=== PATIENT | female | born 1990 | race Caucasian/White ===

== ENCOUNTER 2016-06-21 10:07 | Inpatient (IN) | payer BC ==
[2016-06-20 14:57] VITALS: BMI 27.2
[2016-06-21] MEDS ORDERED: CITRIC ACID-SODIUM CITRATE 15 ML CUP PO ONE (10:20)
[2016-06-21] MEDS ORDERED: LACTATED RINGERS 1,000 ML IV ONE (10:20)
[2016-06-21] MEDS ORDERED: ceFAZolin 2 GM in SODIUM CHLORIDE 0.9% 100 ML IVPB ONE (11:01)
[2016-06-21 11:15] LABS: Basophils % (A) 0 %; CH 29.4; CHCM 33.1; Eosinophils # (A) 0.1 k/uL (0-0.7); Eosinophils % (A) 1 %; HDW 3.15; HGB 10.6 gm/dL (11.4-16.0); Luc # (Auto) 0.19; Luc % (Auto) 2; Lymphocytes # (A) 2.2 k/uL (1.0-4.8); Lymphocytes % (A) 21 %; MCH 30.7 pg (25.0-35.0); MCHC 34.3 g/dL (31.0-37.0); MCV 89.4 fL (80.0-100.0); Monocytes # (A) 0.7 k/uL (0-1.0); Monocytes % (A) 7 %; Neutrophils # (A) 7.1 k/uL (1.3-7.7); Neutrophils % (A) 69 %; RBC 3.47 m/uL (3.80-5.40); RDW 13.7 % (11.5-15.5); WBC 10.3 k/uL (3.8-10.6); WBC (Perox) 10.54
[2016-06-21] MEDS ORDERED: ONDANSETRON 4 MG/2 ML VIAL ONE (12:04)
[2016-06-21] MEDS ORDERED: OXYTOCIN 10 UNIT/ML 1 ML VIAL ONE (12:04)
[2016-06-21] MEDS ORDERED: MORPHINE SULFATE (PF) 0.3 MG/0.3 ML SYR ONE (12:04)
[2016-06-21] MEDS ORDERED: KETOROLAC 30 MG/ML 1 ML VIAL ONE (12:04)
[2016-06-21] MEDS ORDERED: NALBUPHINE 10 MG/ML AMPUL ONE (12:04)
[2016-06-21] MEDS ORDERED: ONDANSETRON 4 MG/2 ML VIAL IVP PRN (12:49)
[2016-06-21] MEDS ORDERED: SIMETHICONE 80 MG CHEWABLE PO PRN (12:49)
[2016-06-21] MEDS ORDERED: diphenhydrAMINE 25 MG CAP PO PRN (12:49)
[2016-06-21] MEDS ORDERED: ACETAMINOPHEN TAB 325 MG TAB PO PRN (12:49)
[2016-06-21] MEDS ORDERED: METOCLOPRAMIDE 5 MG/ML 2 ML VIAL IVP PRN (12:49)
[2016-06-21] MEDS ORDERED: ZOLPIDEM 5 MG TAB PO PRN (12:49)
[2016-06-21] MEDS ORDERED: diphenhydrAMINE 50 MG/ML 1 ML VIAL IVP PRN ×3 (12:49→13:54)
[2016-06-21] MEDS ORDERED: LANOLIN CREAM 5 GM TUBE TOPICAL PRN (12:49)
[2016-06-21] MEDS ORDERED: diphenhydrAMINE 50 MG CAP PO PRN (12:49)
[2016-06-21] MEDS ORDERED: NALOXONE 0.4 MG/ML 1 ML VIAL IV PRN ×2 (12:49→13:54)
[2016-06-21] MEDS ORDERED: Acetaminophen-Codeine 300-30mg TAB PO PRN ×2 (12:49)
--- NOTE | 2016-06-21 12:56 | P.HPOB ---
History of Present Illness H&P Date: 06/21/16 Chief Complaint: 39+ weeks, previous section, undesired fertility The patient is a 25-year-old 4 para 10-1 admitted at 39-4/7 weeks by good dating parameters. She is admitted for repeat low transverse section with intraoperative bilateral tubal occlusion using Filshie clips. The risks and complications of the procedure were discussed and she was offered vaginal trial of labor which she declined. She has signed consent for the procedures as outlined above. Her was otherwise uncomplicated and group B strep status was negative. Obstetrical history 4 para 10-1 with 1 previous delivery secondary to breech presentation with IUGR at 37 weeks of gestation. She had 2 previous early miscarriages not requiring D&C. Current statistics are listed in history of present illness. EDC of 06/25/2016 was established by last menstrual period and confirmed by a 20 week ultrasound. Laboratory workup demonstrates a blood type of A+ with a negative antibody screen. Rubella status is immune. All other laboratory workup was within normal limits. One hour Glucola was normal and group B strep status is negative. Gynecologic history is unremarkable with no history of any infections to include STDs. Review of Systems Review of systems is confined to history of present illness. Past Medical History Past Medical History: No Reported History Additional Past Medical History / Comment(s): BLEEDING POST MISSED AB & HORMONES STILL ELEVATED. History of Any Multi-Drug Resistant Organisms: None Reported Past Surgical History: Section Additional Past Surgical History / Comment(s): V/P SHUNT A BABY, REMOVED AT AGE 6 YR. Past Anesthesia/Blood Transfusion Reactions: No Reported Reaction Past Psychological History: No Psychological Hx Reported Smoking Status: Never smoker Past Alcohol Use History: None Reported Past Drug Use History: None Reported - Past Family History Mother Family Medical History: No Reported History Sister(s) Additional Family Medical History / Comment(s): Spina bifida Medications and Allergies Home Medications Medication Instructions Recorded Confirmed Type Pnv with Ca,No.72/Iron/FA 1 each PO DAILY 06/20/16 06/20/16 History [ Plus Tablet] Allergies Allergy/AdvReac Type Severity Reaction Status Date / Time No Known Allergies Allergy Verified 06/20/16 14:49 Exam In general, this is a well-developed, well-nourished white female in no acute distress. Her heart has a regular rhythm and rate without murmur. Her lungs are clear to auscultation bilaterally in all hendrix. Her abdomen is gravid, nondistended, has normal active bowel sounds, is soft, nontender, and without any palpable masses aside from uterine fundus. Her extremities are without any cyanosis, clubbing, or edema and are nontender to palpation bilaterally. Digital cervical examination is deferred. Results Result Diagrams: 06/21/16 10:50 Abnormal Lab Results - Last 24 Hours (Table) 06/21/16 Range/Units 10:50 RBC 3.47 L (3.80-5.40) m/uL Hgb 10.6 L (11.4-16.0) gm/dL Hct 31.0 L (34.0-46.0) % Assessment and Plan (1) Family planning Status: Acute (2) Previous section Status: Acute Plan: The patient is admitted for repeat low transverse section with intraoperative bilateral tubal occlusion using Filshie clips. The risks and complications were discussed at length. She has expressed her understanding and agreed to proceed. Consent was documented in the office as regards tubal ligation and reaffirmed both prior to surgery and intraoperatively.
[2016-06-21] MEDS ORDERED: OXYTOCIN 30 UNITS/500 ML NS 30 UNIT in SALINE 1 500ML.BAG IV SCH (13:00)
--- NOTE | 2016-06-21 13:03 | P.OP ---
Date of Procedure: 06/21/16 Preoperative Diagnosis: #1. Previous section, declining #2. Undesired fertility Postoperative Diagnosis: Same Procedure(s) Performed: #1. Repeat low transverse section #2. Intraoperative bilateral tubal occlusion with Filshie clips Anesthesia: spinal Surgeon: Jeffrey Samaniego Rabbit Fancier #1: Jazmin Salguero Estimated Blood Loss (ml): 400 IV fluids (ml): 700 Urine output (ml): 400 Pathology: other (Placenta) Condition: stable Disposition: floor Operative Findings: The patient was taken to the operating room where she was delivered of a viable 6 lbs. 9 oz. baby girl with Apgars of 9 at 1 minute and 9 at 5 minutes delivered in the right occiput transverse position. There was a loose nuchal cord 1 reduced after delivery of the head. The placenta was delivered manually , intact, and grossly normal with a grossly normal three-vessel cord. There was minimal intraoperative abdominal scarring. The uterus, tubes, and ovaries were entirely normal to inspection. Each fallopian tube was occluded bilaterally with a Filshie clip approximately 2-3 cm from the cornu. Description of Procedure: The patient was prepped and draped in usual fashion after spinal anesthesia was administered by the anesthesiologist. A Pfannenstiel incision was made through pre-existing scar and extended into the abdominal cavity without difficulty. The bladder peritoneum was minimally scarred but was reflected distally. A 1-2 cm incision was made in the transverse plane of the lower uterine segment to enter the uterus at which time clear fluid was noted. The incision was extended in both directions using the bandage scissors. The head was delivered up and through the incision where the nose and mouth were thoroughly suctioned. The nuchal cord was noted and was reduced. The remainder of the infant was delivered onto the field where the cord was doubly clamped, cut, and the passed for resuscitative measures with weight and Apgars as noted above. A segment of cord was doubly clamped, cut, and set aside should cord gases become necessary. The placenta was delivered manually, intact, and grossly normal with a grossly normal three-vessel cord as noted above. The uterus was exteriorized and the interior cavity of the uterus swept of any remaining placental or membranous fragments. The margins of the incision were grasped with Hurtado clamps and the incision closed in a single running locking stitch of 0 chromic catgut from margin to margin. Any small points of bleeding were made hemostatic with the Bovie. Attention was then turned to the fallopian tubes after reconfirming with the patient her desire for tubal ligation. A Filshie clip was placed across the entire thickness of the isthmic portion of the tube on each side and firmly affixed. Each was placed approximately 2-3 cm from the cornu of the uterus. The posterior cul-de-sac was suctioned using a guard. The uterus was replaced within the abdominal cavity and the gutters were swept of any remaining blood, fluid, or clot. The incision was reexamined and found to be hemostatic. The parietal peritoneum was loosely reapproximated and layer of muscles examined and made hemostatic with the Bovie. The fascia was closed with 2 running stitches of 0 Vicryl proceeding from the lateral margins to the midpoint. Examination the fascial closure demonstrated some tearing of the lower aspect of the left side of the fascia which was reinforced with a running stitch of 0 Vicryl incorporating larger portion of the lower incision. The subcutaneous tissues were irrigated, made hemostatic with the Bovie, and reapproximated with a running stitch of 30 plain catgut. The skin was reapproximated with a running subcuticular stitch of 4-0 Vicryl from margin to margin followed by half-inch Steri-Strips placed with Mastisol. Estimated blood loss for the entire case was 400 mL or less. There were no complications. All sponge, instrument, and needle counts were correct. The patient tolerated the procedure well and proceeded to the recovery room in stable condition. Both mother and are resting comfortably in recovery.
[2016-06-21] MEDS ORDERED: MORPHINE SULFATE 4 MG/ML SYRINGE IVP PRN (13:54)
[2016-06-21] MEDS: LACTATED RINGERS 1,000 ML IV SCH ×2 (14:41→22:15)
[2016-06-22] MEDS: LACTATED RINGERS 1,000 ML IV SCH ×4 (00:35→22:36)
[2016-06-22] MEDS: SENNOSIDES-DOCUSATE SODIUM 1 EACH TAB PO SCH ×3 (00:36→21:25)
[2016-06-22] MEDS: KETOROLAC 30 MG/ML 1 ML VIAL IVP PRN ×2 (04:54→10:16)
[2016-06-22 06:51] LABS: Basophils % (A) 0 %; CH 29.7; CHCM 32.9; Eosinophils # (A) 0.1 k/uL (0-0.7); Eosinophils % (A) 1 %; HCT 29.8 % (34.0-46.0); HDW 2.97; HGB 9.8 gm/dL (11.4-16.0); Luc % (Auto) 2; Lymphocytes # (A) 1.8 k/uL (1.0-4.8); Lymphocytes % (A) 16 %; MCH 29.6 pg (25.0-35.0); MCHC 32.7 g/dL (31.0-37.0); MCV 90.6 fL (80.0-100.0); Mean Platelet Volume 7.4; Monocytes # (A) 0.8 k/uL (0-1.0); Monocytes % (A) 7 %; Neutrophils # (A) 8.4 k/uL (1.3-7.7); Neutrophils % (A) 74 %; RBC 3.29 m/uL (3.80-5.40); RDW 13.6 % (11.5-15.5); WBC 11.3 k/uL (3.8-10.6); WBC (Perox) 11.22
--- NOTE | 2016-06-22 08:30 | P.PNOBGPC ---
Subjective - Subjective Patient reports: Reports appetite normal, Reports voiding normally, Reports pain well controlled, Reports ambulating normally : doing well Objective - Vital Signs Latest vital signs: Vital Signs Temp Pulse Resp BP Pulse Ox 06/22/16 08:00 98.2 F 88 18 95/63 06/22/16 04:00 97.1 F L 89 16 111/68 06/22/16 00:00 98.9 F 81 16 118/77 99 06/21/16 20:00 97.0 F L 80 16 119/92 99 06/21/16 18:00 18 06/21/16 16:54 98.5 F 75 16 113/67 99 06/21/16 14:54 99 06/21/16 14:50 98.6 F 68 18 117/71 06/21/16 14:20 72 16 126/61 06/21/16 13:50 98.4 F 73 16 98/54 06/21/16 13:35 77 16 101/66 06/21/16 13:20 98.6 F 77 16 101/66 06/21/16 13:05 84 16 111/67 99 06/21/16 12:50 98.4 F 91 18 107/68 99 06/21/16 10:08 98.4 F 90 18 108/80 99 Intake and Output 06/21/16 06/22/16 06/22/16 22:59 06:59 14:59 Intake Total 2200 400 Output Total 1700 1050 Balance 500 -1050 400 Intake: Intake, IV Titration 2100 Amount Lactated Ringers 1,000 ml 1000 @ 125 mls/hr IV .Q8H MAGDI Rx#:[id number] Lactated Ringers 1,000 ml 1000 @ 4000 mls/hr IV .Q15M ONE Rx#:[id number] ceFAZolin 2 gm In Sodium 100 Chloride 0.9% 100 ml @ 100 mls/hr IVPB ONCE ONE Rx#:[id number] Oral 100 400 Output: Urine 1700 1050 Uretheral (Bardales) 300 Other: # Voids 2 1 - Exam Lungs: bilateral: normal Chest: Normal S1, Normal S2 Extremities: Present: normal Abdomen: Present: normal appearance, soft. Absent: distention, tenderness Incision: Present: normal, dry, intact Uterus: Present: normal, firm (The uterine fundus as tonic and nontender at the umbilicus.) - Labs Labs: Abnormal Lab Results - Last 24 Hours (Table) 06/21/16 06/22/16 Range/Units 10:50 06:29 WBC 11.3 H (3.8-10.6) k/uL RBC 3.47 L 3.29 L (3.80-5.40) m/uL Hgb 10.6 L 9.8 L (11.4-16.0) gm/dL Hct 31.0 L 29.8 L (34.0-46.0) % Neutrophils # 8.4 H (1.3-7.7) k/uL Assessment and Plan (1) Family planning Current Visit: Yes Status: Acute Code(s): Z30.09 - ENCOUNTER FOR OT GENERAL CNSL AND ADVICE ON CONTRACEPTION SNOMED Code(s): 05880101 (2) Previous section Current Visit: Yes Status: Acute Code(s): Z98.891 - HISTORY OF UTERINE SCAR FROM PREVIOUS SURGERY SNOMED Code(s): 964014295 (3) delivery delivered Narrative/Plan: Continue routine postoperative care. I have strongly encouraged the patient ambulate in the halls at least 4 times daily or more. Her diet has been advanced to regular. Assuming no complications, the patient is likely to be discharged home tomorrow. Current Visit: Yes Status: Acute Code(s): O82 - ENCOUNTER FOR DELIVERY WITHOUT INDICATION SNOMED Code(s): 794208117
--- NOTE | 2016-06-22 08:42 | P.PN ---
Progress Note - Text Date: 06/22/2016 Time: 707 The patient is status post section Vital signs stable VAS: 0-10 Patient has no complaints of pain. The patient incurred some minimal itching yesterday, this itching is now subsiding. Pain meds to be managed by service.
[2016-06-22] MEDS: IBUPROFEN 600 MG TAB PO PRN (21:25)
[2016-06-22 22:39] VITALS: TEMP 98
[2016-06-23] MEDS: SENNOSIDES-DOCUSATE SODIUM 1 EACH TAB PO SCH (08:19)
[2016-06-23] MEDS: IBUPROFEN 600 MG TAB PO PRN (08:19)
[2016-06-23 10:28] VITALS: RESP 20
[2016-06-23 10:29] VITALS: BP 101/64; PULSE 90
--- NOTE | 2016-06-23 11:35 | P.DS ---
Providers Date of admission: 06/21/16 10:07 Expected date of discharge: 06/23/16 Attending physician: Jeffrey Samaniego Primary care physician: Jere Cottrell - Discharge Diagnosis(es) (1) Family planning Current Visit: Yes Status: Acute (2) Previous section Current Visit: Yes Status: Acute (3) delivery delivered Current Visit: Yes Status: Acute Hospital Course: The patient is a 25-year-old 4 para 1021 admitted at 39-4/7 weeks by good dating parameters. She has a history of a previous section and was requesting repeat with intraoperative tubal ligation. Consents were documented in the office. She was taken to the operating room where she underwent repeat low transverse section with bilateral tubal occlusion using Filshie clips. The procedure was uncomplicated in nature. Her postoperative course was additionally uncomplicated with the vital signs being stable and her temperature was afebrile throughout. She was deemed stable for discharge by postoperative day #2 and was discharged home to follow-up in the office in 2 weeks for an incision check and 6 weeks routinely. Discharge instructions included calling for any significantly increased bleeding or foul- smelling lochia, significantly increased fever or abdominal pain, perineal complaints, breast complaints, incisional complaints, or anything else that concerned her. She was additionally instructed to have nothing in the vagina for at least 6 weeks time to include intercourse. She understood all of her instructions and agrees to follow up as noted above. Discharge medications included continued vitamins as she has opted to breast-feed. She was additionally provided with a prescription for Tylenol 3, 1-2 by mouth every 6 hours when necessary pain, #30 dispensed with no refills. She was to alternate this with [id number] analgesics as needed. Maternal blood type is A+ and rubella status is immune. Discharge hemoglobin and hematocrit were 9.8 and 29.8 respectively. As result, she was asked use iron sulfate daily for approximately 1 month. Procedures: #1. Repeat low transverse section #2. Intraoperative bilateral tubal occlusion using Filshie clips Patient Condition at Discharge: Good Plan - Discharge Summary New Discharge Prescriptions: Acetaminophen-Codeine 300-30mg [Tylenol #3] 2 tab PO Q6H PRN #30 tablet PRN Reason: Pain Discharge Medication List Pnv with Ca,No.72/Iron/FA [ Plus Tablet] 1 each PO DAILY 06/20/16 [ History] Acetaminophen-Codeine 300-30mg [Tylenol #3] 2 tab PO Q6H PRN #30 tablet [Rx] Follow up Appointment(s)/Referral(s): Jeffrey Samaniego MD [STAFF PHYSICIAN] - 2 Weeks Discharge Disposition: HOME SELF-CARE
== END 2016-06-23 13:00 | disposition home or self-care (01) | DRG 766 ==
LOC: 4FBP 10:07
PROVIDERS: ADMIT Obstetrics & Gynecology; ATTEND Obstetrics & Gynecology
PROC: 10D00Z1 Extraction of Products of Conception, Low, Open Approach (ICD-10-PCS; principal; 2016-06-21 12:00)
PROC: 0UB70ZZ Excision of Bilateral Fallopian Tubes, Open Approach (ICD-10-PCS; principal; 2016-06-21 12:00)
DX: O34.211 Maternal care for low transverse scar from previous cesarean delivery (principal); O69.81X0 Labor and delivery complicated by cord around neck, without compression, not applicable or unspecified; Z37.0 Single live birth; Z3A.39 39 weeks gestation of pregnancy; Z30.2 Encounter for sterilization
CPT/HCPCS: 85025; 86850; 86900; 86901; 88307

== ENCOUNTER 2016-08-24 16:49 | Observation (INO) | payer BC ==
[2016-08-24] MEDS ORDERED: SODIUM CHLORIDE 0.9% 1,000 ML IV ONE (19:04)
[2016-08-24] MEDS ORDERED: ONDANSETRON 4 MG/2 ML VIAL IVP STA (19:04)
[2016-08-24] MEDS ORDERED: KETOROLAC 30 MG/ML 1 ML VIAL IVP STA (19:04)
--- NOTE | 2016-08-24 19:07 | ED ---
Abdominal Pain HPI <Carlitos Johnson - Last Filed: 08/24/16 20:48> - General Source: patient, RN notes reviewed Mode of arrival: wheelchair Limitations: no limitations <Tayla Olson - Last Filed: 08/25/16 02:46> - General Chief Complaint: Abdominal Pain Stated Complaint: Vomiting, Abd Pain, back pain Time Seen by Provider: 08/24/16 18:29 - History of Present Illness Initial Comments: Patient is a 25-year-old female presents to the emergency room for an evaluation of abdominal pain. Patient states the pain began around noon today. Patient states she began having right lower quadrant pain. Patient states she 's having nausea and vomiting. Patient states she is having 7 out of 10 pain. Patient states the pain is constant. Patient states she has a history of section and tubal ligation in May. Patient denies fevers or chills. Patient states the pain is not any worse with movement. Patient states she has history kidney stone about 10 years ago. Patient is not sure if this feels similar to kidney stone. Patient states the pain radiates to her back. Patient denies pain or burning during urination, trouble urinating or blood in urine. Patient denies chest pain or shortness of breath. Patient denies headache or dizziness. (Tayla Olson) - Related Data Home Medications Medication Instructions Recorded Confirmed No Known Home Medications [No 08/24/16 08/24/16 Known Home Medications] Allergies Allergy/AdvReac Type Severity Reaction Status Date / Time No Known Allergies Allergy Verified 08/24/16 16:54 Review of Systems ROS Other: All systems not noted in ROS Statement are negative. <Carlitos Johnson - Last Filed: 08/24/16 20:48> ROS Other: All systems not noted in ROS Statement are negative. <Tayla Olson - Last Filed: 08/25/16 02:46> ROS Statement: Those systems with pertinent positive or pertinent negative responses have been documented in the HPI. Past Medical History Past Medical History: No Reported History Additional Past Medical History / Comment(s): BLEEDING POST MISSED AB & HORMONES STILL ELEVATED. History of Any Multi-Drug Resistant Organisms: None Reported Past Surgical History: Section, Tubal Ligation Additional Past Surgical History / Comment(s): V/P SHUNT A BABY, REMOVED AT AGE 6 YR. Past Anesthesia/Blood Transfusion Reactions: No Reported Reaction Past Psychological History: No Psychological Hx Reported Smoking Status: Never smoker Past Alcohol Use History: None Reported Past Drug Use History: None Reported - Past Family History Mother Family Medical History: No Reported History Sister(s) Additional Family Medical History / Comment(s): Spina bifida <Tayla Olson - Last Filed: 08/25/16 02:46> General Exam <Carlitos Johnson - Last Filed: 08/24/16 20:48> Limitations: no limitations General appearance: alert, in no apparent distress Head exam: Present: atraumatic, normocephalic, normal inspection Eye exam: Present: normal appearance ENT exam: Present: normal exam Neck exam: Present: normal inspection Respiratory exam: Present: normal lung sounds bilaterally. Absent: respiratory distress Cardiovascular Exam: Present: regular rate, normal rhythm, normal heart sounds GI/Abdominal exam: Present: soft, tenderness (right lower quadrant), normal bowel sounds. Absent: distended, guarding, rebound, rigid Extremities exam: Present: normal inspection Back exam: Present: normal inspection Neurological exam: Present: alert, oriented X3, CN II-XII intact, normal gait Psychiatric exam: Present: normal affect, normal mood Skin exam: Present: warm, dry, intact, normal color. Absent: rash <Tayla Olson - Last Filed: 08/25/16 02:46> - General Exam Comments Initial Comments: laying in exam room, no distress. (Tayla Olson) Medical Decision Making - Lab Data Result diagrams: 08/24/16 18:35 08/24/16 18:35 <Carlitos Johnson - Last Filed: 08/24/16 20:48> - Lab Data Result diagrams: 08/24/16 18:35 08/24/16 18:35 <Tayla Olson - Last Filed: 08/25/16 02:46> - Medical Decision Making Patient reexamined by myself, Dr. Johnson. Patient has had progressive abdominal discomfort since noon. Abdomen is soft with moderate tenderness right lower quadrant. Ultrasound suspicious for appendicitis. Case discussed with Dr. Castellon, who will take patient to the operating room for Dr. Cottrell. Patient was updated. (Carlitos Johnson) - Lab Data Lab Results 08/24/16 08/24/16 08/24/16 Range/Units 18:35 18:35 19:08 WBC 12.5 H (3.8-10.6) k/uL RBC 4.16 (3.80-5.40) m/uL Hgb 12.3 (11.4-16.0) gm/dL Hct 36.7 (34.0-46.0) % MCV 88.3 (80.0-100.0) fL MCH 29.5 (25.0-35.0) pg MCHC 33.4 (31.0-37.0) g/dL RDW 13.9 (11.5-15.5) % Plt Count 275 (150-450) k/uL Neutrophils % 87 % Lymphocytes % 9 % Monocytes % 3 % Eosinophils % 0 % Basophils % 0 % Neutrophils # 10.9 H (1.3-7.7) k/uL Lymphocytes # 1.2 (1.0-4.8) k/uL Monocytes # 0.3 (0-1.0) k/uL Eosinophils # 0.0 (0-0.7) k/uL Basophils # 0.1 (0-0.2) k/uL Sodium 143 (137-145) mmol/L Potassium 4.0 (3.5-5.1) mmol/L Chloride 108 H (98-107) mmol/L Carbon Dioxide 21 L (22-30) mmol/L Anion Gap 14 mmol/L BUN 18 H (7-17) mg/dL Creatinine 0.89 (0.52-1.04) mg/dL Est GFR (MDRD) Af Amer >60 (>60 ml/min/1.73 sqM) Est GFR (MDRD) Non-Af >60 (>60 ml/min/1.73 sqM) Glucose 105 H (74-99) mg/dL Calcium 9.9 (8.4-10.2) mg/dL Total Bilirubin 0.8 (0.2-1.3) mg/dL AST 23 (14-36) U/L ALT 25 (9-52) U/L Alkaline Phosphatase 84 (38-126) U/L Total Protein 7.5 (6.3-8.2) g/dL Albumin 4.6 (3.5-5.0) g/dL Amylase 46 (30-110) U/L Lipase 77 (23-300) U/L Urine Color Urine Appearance (Clear) Urine pH (5.0-8.0) Ur Specific [place] (1.001-1.035) Urine Protein (Negative) Urine Glucose (UA) (Negative) Urine Ketones (Negative) Urine Blood (Negative) Urine Nitrite (Negative) Urine Bilirubin (Negative) Urine Urobilinogen (<2.0) mg/dL Ur Leukocyte Esterase (Negative) Urine RBC (0-5) /hpf Urine WBC (0-5) /hpf Ur Squamous Epith Cells (0-4) /hpf Urine Bacteria (None) /hpf Urine Mucus (None) /hpf Urine HCG, Qual Not Detected (Not Detectd) 08/24/16 Range/Units 19:08 WBC (3.8-10.6) k/uL RBC (3.80-5.40) m/uL Hgb (11.4-16.0) gm/dL Hct (34.0-46.0) % MCV (80.0-100.0) fL MCH (25.0-35.0) pg MCHC (31.0-37.0) g/dL RDW (11.5-15.5) % Plt Count (150-450) k/uL Neutrophils % % Lymphocytes % % Monocytes % % Eosinophils % % Basophils % % Neutrophils # (1.3-7.7) k/uL Lymphocytes # (1.0-4.8) k/uL Monocytes # (0-1.0) k/uL Eosinophils # (0-0.7) k/uL Basophils # (0-0.2) k/uL Sodium (137-145) mmol/L Potassium (3.5-5.1) mmol/L Chloride (98-107) mmol/L Carbon Dioxide (22-30) mmol/L Anion Gap mmol/L BUN (7-17) mg/dL Creatinine (0.52-1.04) mg/dL Est GFR (MDRD) Af Amer (>60 ml/min/1.73 sqM) Est GFR (MDRD) Non-Af (>60 ml/min/1.73 sqM) Glucose (74-99) mg/dL Calcium (8.4-10.2) mg/dL Total Bilirubin (0.2-1.3) mg/dL AST (14-36) U/L ALT (9-52) U/L Alkaline Phosphatase (38-126) U/L Total Protein (6.3-8.2) g/dL Albumin (3.5-5.0) g/dL Amylase (30-110) U/L Lipase (23-300) U/L Urine Color Yellow Urine Appearance Cloudy H (Clear) Urine pH 6.5 (5.0-8.0) Ur Specific [place] 1.018 (1.001-1.035) Urine Protein 1+ H (Negative) Urine Glucose (UA) Negative (Negative) Urine Ketones Trace H (Negative) Urine Blood Large H (Negative) Urine Nitrite Negative (Negative) Urine Bilirubin Negative (Negative) Urine Urobilinogen <2.0 (<2.0) mg/dL Ur Leukocyte Esterase Negative (Negative) Urine RBC >182 H (0-5) /hpf Urine WBC 6 H (0-5) /hpf Ur Squamous Epith Cells 1 (0-4) /hpf Urine Bacteria Rare H (None) /hpf Urine Mucus Occasional H (None) /hpf Urine HCG, Qual (Not Detectd) Disposition <Carlitos Johnson - Last Filed: 08/24/16 20:48> Decision Date: 08/24/16 <Tayla Olson - Last Filed: 08/25/16 02:46> Clinical Impression: Acute appendicitis Disposition: ADMITTED IP TO THIS HOSP Condition: Stable
[2016-08-24 19:10] LABS: Basophils # (A) 0.1 k/uL (0-0.2); Basophils % (A) 0 %; CH 29.9; CHCM 33.9; Eosinophils % (A) 0 %; HCT 36.7 % (34.0-46.0); HDW 2.57; HGB 12.3 gm/dL (11.4-16.0); Luc # (Auto) 0.09; Luc % (Auto) 1; Lymphocytes # (A) 1.2 k/uL (1.0-4.8); Lymphocytes % (A) 9 %; MCH 29.5 pg (25.0-35.0); MCHC 33.4 g/dL (31.0-37.0); MCV 88.3 fL (80.0-100.0); Mean Platelet Volume 7.2; Monocytes # (A) 0.3 k/uL (0-1.0); Monocytes % (A) 3 %; Neutrophils # (A) 10.9 k/uL (1.3-7.7); Neutrophils % (A) 87 %; RBC 4.16 m/uL (3.80-5.40); RDW 13.9 % (11.5-15.5); WBC 12.5 k/uL (3.8-10.6); WBC (Perox) 11.77
[2016-08-24 19:17] LABS: ALT 25 U/L (9-52); AST 23 U/L (14-36); Alkaline Phosphatase 84 U/L (38-126); Amylase 46 U/L (30-110); Anion Gap 14 mmol/L; Blood Urea Nitrogen 18 mg/dL (7-17); Calcium 9.9 mg/dL (8.4-10.2); Carbon Dioxide 21 mmol/L (22-30); Chloride 108 mmol/L (98-107); Glucose 105 mg/dL (74-99); Non-African American GFR(MDRD) >60 (>60 ml/min/1.73 sqM); Sodium 143 mmol/L (137-145); Total Bilirubin 0.8 mg/dL (0.2-1.3); Total Protein 7.5 g/dL (6.3-8.2)
[2016-08-24 19:43] LABS: Appearance,Urine Cloudy (Clear); Bacteria,Urine Rare /hpf; Bilirubin,Urine Negative (Negative); Glucose,Urine (UA) Negative (Negative); Ketones,Urine Trace (Negative); Leukocyte Esterase,Urine Negative (Negative); Mucus,Urine Occasional /hpf; Nitrite,Urine Negative (Negative); PH, Urine 6.5 (5.0-8.0); Particle Count 9126; Protein,Urine 1+ (Negative); RBC,Urine >182 /hpf (0-5); Specific Gravity,Urine 1.018 (1.001-1.035); Squamous Epithelial Cell,Urine 1 /hpf (0-4); UA Billing (MACRO vs. MICRO) MICRO; Urobilinogen,Urine <2.0 mg/dL (<2.0); WBC,Urine 6 /hpf (0-5)
--- NOTE | 2016-08-24 20:41 | US ---
EXAMINATION TYPE: US ABDOMEN APPY DATE OF EXAM: 08/24/2016 COMPARISON: NONE CLINICAL HISTORY: RLQ Pain. Vomiting APPENDIX AP Diameter (normal < 6mm): 9 mm Measured outer wall to outer wall. Is the candidate for appendix seen in its entirety from the proximal cecum to distal end: No, the ap pendix is not visualized in its entirety. Non-compressible fluid-filled structure visualized in RLQ m easuring up to 0.9 cm Is the candidate for appendix compressible: No Does the candidate for appendix wall appear hypervascular: Yes Is an appendicolith present: No Is there inflammatory changes or free fluid present: Equivocal IMPRESSION: The constellation of sonographic findings can correlate with a clinical diagnosis of non complicated acute appendicitis. Should increased specificity is felt to be necessary then would sugge st consideration of CT imaging.
[2016-08-24] MEDS ORDERED: NALOXONE 0.4 MG/ML 1 ML VIAL IV PRN (20:50)
[2016-08-24] MEDS ORDERED: HYDROmorphone 1 MG/ML 1 ML SYRINGE IV PRN (20:50)
[2016-08-24] MEDS ORDERED: ONDANSETRON 4 MG/2 ML VIAL IVP PRN (20:50)
[2016-08-24] MEDS ORDERED: AMPICILLIN-SULBACTAM 3 GM in SODIUM CHLORIDE 0.9% 100 ML IVPB STA (20:51)
[2016-08-24] MEDS ORDERED: RX INFO: IV CONTRAST WAS GIVEN 1 EACH MISC MISCELLANE PRN (21:19)
[2016-08-24] MEDS: SODIUM CHLORIDE 0.9% 1,000 ML IV SCH (21:22)
[2016-08-24] MEDS ORDERED: IV FLUID CONTINUATION 1,000 ML IV ONE (22:10)
--- NOTE | 2016-08-24 22:25 | CT ---
EXAMINATION TYPE: CT abdomen pelvis w con DATE OF EXAM: 08/24/2016 COMPARISON: The midabdomen, the right lower quadrant, and the left lower quadrant were surveyed HISTORY: Right lower quadrant pain today with nausea and vomiting. CT DLP: 376.00 mGycm Automated exposure control for dose reduction was used. TECHNIQUE: Helical acquisition of images was performed from the lung bases through the pelvis. CONTRAST: Performed without Oral Contrast and with IV Contrast, patient injected with 100 mL of Omnip aque 300. FINDINGS: LUNG BASES: No significant abnormality is appreciated. LIVER/GB: No significant abnormality is appreciated. PANCREAS: No significant abnormality is seen. SPLEEN: No significant abnormality is seen. ADRENALS: No significant abnormality is seen. KIDNEYS: No significant abnormality is seen. FREE AIR: No free air is visualized. RETROPERITONEAL ADENOPATHY: There is a small cluster of mildly prominent lymph nodes located immedia tely ventral to the right psoas muscle and just caudal to the lower pole right kidney. These appear t o be ileocecal nodes. REPRODUCTIVE ORGANS: No significant abnormality is seen URINARY BLADDER: No significant abnormality is seen. PELVIC ADENOPATHY: None visualized. OSSEOUS STRUCTURES: No significant abnormality is seen. BOWEL: Extending caudally from the cecum is the blind ending loop of bowel seen at sonography. This is consistent with the appendix, and has associated circumferential mural contrast enhancement, mild periappendiceal edematous reticulation, and subtle thickening of the right lobe lateral conal fascia. As situated, the tip of the appendix is just deep to the anterior abdominal wall musculature. IMPRESSION: FINDINGS CONSISTENT WITH NONCOMPLICATED ACUTE APPENDICITIS.
--- NOTE | 2016-08-24 22:44 | P.GSHP ---
History of Present Illness H&P Date: 08/24/16 Chief Complaint: Acute appendicitis 25 years old female presents with umbilical pain radiating to right lower quadrant. The pain started around noon . She has nausea and vomiting. No fever or chills or rigors Past Medical History Past Medical History: No Reported History Additional Past Medical History / Comment(s): BLEEDING POST MISSED AB & HORMONES STILL ELEVATED. History of Any Multi-Drug Resistant Organisms: None Reported Past Surgical History: Section, Tubal Ligation Additional Past Surgical History / Comment(s): V/P SHUNT A BABY, REMOVED AT AGE 6 YR. Past Anesthesia/Blood Transfusion Reactions: No Reported Reaction Past Psychological History: No Psychological Hx Reported Smoking Status: Never smoker Past Alcohol Use History: None Reported Past Drug Use History: None Reported - Past Family History Mother Family Medical History: No Reported History Sister(s) Additional Family Medical History / Comment(s): Spina bifida Medications and Allergies Home Medications Medication Instructions Recorded Confirmed Type No Known Home Medications [No 08/24/16 08/24/16 History Known Home Medications] Allergies Allergy/AdvReac Type Severity Reaction Status Date / Time No Known Allergies Allergy Verified 08/24/16 16:54 Surgical - Exam Vital Signs Temp Pulse Resp BP Pulse Ox 98.0 F 76 18 130/80 99 08/24/16 16:51 08/24/16 16:51 08/24/16 16:51 08/24/16 16:51 08/24/16 16:51 General: Patient is alert and oriented to time, place and person and cooperative with exam. HEENT: No pallor, no icterus, Chest: Bilateral equal breath sounds present. No wheezes, no crackles. Cardiovascular: Regular rate and rhythm. Abdomen: Right lower quadrant tenderness. Integumentary: No active ulcers or discharge. Neurologic: Cranial nerves II-XII intact. Strength upper and lower extremities 5/5. No focal neurologic deficits. Gait is normal. Results - Labs 08/24/16 18:35 08/24/16 18:35 Abnormal Lab Results - Last 24 Hours (Table) 08/24/16 08/24/16 08/24/16 Range/Units 18:35 18:35 19:08 WBC 12.5 H (3.8-10.6) k/uL Neutrophils # 10.9 H (1.3-7.7) k/uL Chloride 108 H (98-107) mmol/L Carbon Dioxide 21 L (22-30) mmol/L BUN 18 H (7-17) mg/dL Glucose 105 H (74-99) mg/dL Urine Appearance Cloudy H (Clear) Urine Protein 1+ H (Negative) Urine Ketones Trace H (Negative) Urine Blood Large H (Negative) Urine RBC >182 H (0-5) /hpf Urine WBC 6 H (0-5) /hpf Urine Bacteria Rare H (None) /hpf Urine Mucus Occasional H (None) /hpf Diabetes panel 08/24/16 Range/Units 18:35 Sodium 143 (137-145) mmol/L Potassium 4.0 (3.5-5.1) mmol/L Chloride 108 H (98-107) mmol/L Carbon Dioxide 21 L (22-30) mmol/L BUN 18 H (7-17) mg/dL Creatinine 0.89 (0.52-1.04) mg/dL Glucose 105 H (74-99) mg/dL Calcium 9.9 (8.4-10.2) mg/dL AST 23 (14-36) U/L ALT 25 (9-52) U/L Alkaline Phosphatase 84 (38-126) U/L Total Protein 7.5 (6.3-8.2) g/dL Albumin 4.6 (3.5-5.0) g/dL Calcium panel 08/24/16 Range/Units 18:35 Calcium 9.9 (8.4-10.2) mg/dL Albumin 4.6 (3.5-5.0) g/dL Pituitary panel 08/24/16 Range/Units 18:35 Sodium 143 (137-145) mmol/L Potassium 4.0 (3.5-5.1) mmol/L Chloride 108 H (98-107) mmol/L Carbon Dioxide 21 L (22-30) mmol/L BUN 18 H (7-17) mg/dL Creatinine 0.89 (0.52-1.04) mg/dL Glucose 105 H (74-99) mg/dL Calcium 9.9 (8.4-10.2) mg/dL Adrenal panel 08/24/16 Range/Units 18:35 Sodium 143 (137-145) mmol/L Potassium 4.0 (3.5-5.1) mmol/L Chloride 108 H (98-107) mmol/L Carbon Dioxide 21 L (22-30) mmol/L BUN 18 H (7-17) mg/dL Creatinine 0.89 (0.52-1.04) mg/dL Glucose 105 H (74-99) mg/dL Calcium 9.9 (8.4-10.2) mg/dL Total Bilirubin 0.8 (0.2-1.3) mg/dL AST 23 (14-36) U/L ALT 25 (9-52) U/L Alkaline Phosphatase 84 (38-126) U/L Total Protein 7.5 (6.3-8.2) g/dL Albumin 4.6 (3.5-5.0) g/dL Assessment and Plan (1) Acute appendicitis Status: Acute Plan: 1. Informed consent obtained for laparoscopic appendicectomy. The risks, benefits and potential complications including bleeding, infection and possibility of converting into open were discussed with the patient 2. Computed tomography scan reviewed and showed acute appendicitis 3. Preoperative antibiotics 4. Bilateral SCDs 5. Heparin 5000 units subcutaneous injection 1
[2016-08-24] MEDS ORDERED: ONDANSETRON 4 MG/2 ML VIAL ONE (22:46)
[2016-08-24] MEDS ORDERED: MIDAZOLAM 2 MG/2 ML VIAL ONE (22:46)
[2016-08-24] MEDS ORDERED: SUCCINYLCHOLINE CHLORIDE 100 MG/5 ML SYR IV ONE (22:46)
[2016-08-24] MEDS ORDERED: HYDROmorphone (PF) 1 MG/ML ONE (22:46)
[2016-08-24] MEDS ORDERED: KETOROLAC 30 MG/ML 1 ML VIAL ONE (22:46)
[2016-08-24] MEDS ORDERED: DEXAMETHASONE SOD PHOS (MDV) 100 MG/10 ML VIAL ONE (22:46)
[2016-08-24] MEDS ORDERED: HEPARIN SODIUM,PORCINE 5,000 UNIT/ML 1 ML VIAL ONE (22:46)
[2016-08-24] MEDS ORDERED: LIDOCAINE 1% INJ 10MG/ML (20 ML MDV) ONE (22:46)
[2016-08-24] MEDS ORDERED: fentaNYL (PF) 50 MCG/ML 2 ML AMP ONE (22:46)
[2016-08-24] MEDS ORDERED: PROPOFOL 10 MG/ML 20 ML VIAL IV ONE (22:46)
--- NOTE | 2016-08-24 22:49 | P.OP ---
Date of Procedure: 08/24/16 Preoperative Diagnosis: Acute appendicitis Postoperative Diagnosis: Same Procedure(s) Performed: Laparoscopic appendectomy Implants: Anesthesia: YONI local Surgeon: Charo Castellon Pathology: other Condition: stable Disposition: PACU Indications for Procedure: 25 years old female presents with acute onset of right lower quadrant pain. Computed tomography scan showed acute appendicitis. Informed consent obtained for laparoscopic appendectomy possible open Operative Findings: Acute appendicitis Description of Procedure: The patient was brought to the operating room and placed in supine position with left arm tucked and a footboard was placed. General anesthesia with endotracheal intubation was performed as per anesthesia team. A Bardales catheter was inserted under sterile aseptic precautions. Chlorhexidine was used to prep the abdomen followed by application of sterile drapes. A timeout was performed to verify correct patient and correct procedure. Patient was confirmed to receive perioperative IV antibiotics, subcutaneous heparin for VTE prophylaxis and bilateral SCDs were placed. A 5 mm skin incision was made in the left anterior axillary line and a Veress needle was inserted into the peritoneal cavity and CO2 insufflated to a pressure of 15 mmHg. A 5 mm Optiview trocar was loaded on a 5 mm 30 laparoscope and peritoneal cavity was entered under direct vision. An additional 5 mm trocar was placed in the suprapubic location in midline and a 12 mm trocar in the infraumbilical location. Patient was placed in Trendelenburg with right side up. The appendix was identified. A suction irrigation device was used to gently dissecting appendix from the surrounding tissue. All the fibrinous exudates were removed. A window was made in the mesoappendix close to the cecal base using a [place] dissector. Laparoscopic Ligasure was used to divide the mesoappendix. No bleeding noted from the mesoappendiceal stump. The appendix was divided at its base, at the confluence of three tenia using Ethicon stapler 45 blue loadx2 . The staple line was intact without evidence of bleeding. The appendix was placed in an endocatch bag and was retrieved through the infraumbilical port site. All the trocar sites were examined and no evidence of bleeding. Excess fluid was suctioned out. The 12 mm trocar site was closed using three transfascial sutures of 0 Vicryl which were placed using a Andrews Marla device. Local anesthetic was infiltrated along all the ports sites. The sponge, instrument and needle count were correct x2. CO2 gas was evacuated and trocars were removed. 4-0 Monocryl was used to close the skin incisions followed by Dermabond skin glue. Bardales catheter was discontinued. Patient tolerated the procedure well and was taken to post anesthesia care unit in stable condition.
[2016-08-24] MEDS ORDERED: BUPIVACAIN-EPI 0.5%-1:200,000 30 ML VIAL SQ ONE (23:16)
[2016-08-25] MEDS ORDERED: LACTATED RINGERS 1,000 ML IV ONE (00:17)
[2016-08-25] MEDS: KETOROLAC 30 MG/ML 1 ML VIAL IVP PRN ×2 (06:29→13:30)
[2016-08-25] MEDS: SODIUM CHLORIDE 0.9% 1,000 ML IV SCH (06:29)
[2016-08-25 06:59] LABS: Basophils % (A) 0 %; CH 28.9; CHCM 32.7; Eosinophils # (A) 0.1 k/uL (0-0.7); Eosinophils % (A) 0 %; HCT 32.1 % (34.0-46.0); HDW 2.58; HGB 10.8 gm/dL (11.4-16.0); Luc # (Auto) 0.21; Luc % (Auto) 2; Lymphocytes # (A) 2.1 k/uL (1.0-4.8); Lymphocytes % (A) 19 %; MCHC 33.8 g/dL (31.0-37.0); MCV 88.7 fL (80.0-100.0); Mean Platelet Volume 7.3; Monocytes # (A) 0.6 k/uL (0-1.0); Monocytes % (A) 5 %; Neutrophils % (A) 73 %; RBC 3.61 m/uL (3.80-5.40); RDW 13.6 % (11.5-15.5); WBC (Perox) 11.78
[2016-08-25 07:13] LABS: ALT 20 U/L (9-52); AST 24 U/L (14-36); Alkaline Phosphatase 57 U/L (38-126); Anion Gap 8 mmol/L; Blood Urea Nitrogen 12 mg/dL (7-17); Calcium 8.6 mg/dL (8.4-10.2); Carbon Dioxide 21 mmol/L (22-30); Chloride 111 mmol/L (98-107); Glucose 88 mg/dL (74-99); Non-African American GFR(MDRD) >60 (>60 ml/min/1.73 sqM); Potassium 3.8 mmol/L (3.5-5.1); Sodium 140 mmol/L (137-145); Total Bilirubin 0.8 mg/dL (0.2-1.3); Total Protein 5.7 g/dL (6.3-8.2)
[2016-08-25 08:01] VITALS: RESP 20
[2016-08-25] MEDS ORDERED: Acetaminophen-Codeine 300-30mg TAB PO PRN (09:13)
[2016-08-25] MEDS: Acetaminophen-Codeine 300-30mg TAB PO PRN ×2 (09:31→15:57)
--- NOTE | 2016-08-25 12:02 | P.DS ---
Providers Date of admission: 08/24/16 20:51 Expected date of discharge: 08/25/16 Attending physician: Charo Castellon Primary care physician: Jere Cottrell [facility] Course: 25 show female presented on the day of admission to the emergency room with pain in the umbilical area radiating to the right lower quadrant. Patient stated it was associated with nausea and vomiting there were no fever chills. She was seen in the emergency room CAT scan of the abdomen pelvis showed acute appendicitis. Patient was admitted to the services of the attending. Elected to undergo a laparoscopic appendectomy done on August 24. Postop no events. Patient has no significant past medical history. Does have a 8-week-old at home On the day of discharge 25 of August the white count 11. Hemoglobin 10.8. AST and ALT not elevated and the creatinine 0.7 temp is 97.9. Patient was felt to be appropriate to be discharged home with the plan the patient will follow-up in one week with Dr. Castellon Impression discharge diagnose Present on admission new onset umbilical pain radiating to right lower quadrant suspect due to acute appendicitis History of a recent 8 weeks prior CAT scan abdomen and pelvis shows acute appendicitis Laparoscopic appendectomy for acute appendicitis done on August 24 Present on admission leukocytosis suspect reactive The above impression and plan of care have been discussed and directed by signing physician. Francia Pineda nurse practitioner acting as scribe for signing physician. Patient Condition at Discharge: Stable Plan - Discharge Summary New Discharge Prescriptions: New Acetaminophen Tab [Tylenol Tab] 650 mg PO Q4H #30 tablet Discharge Medication List Acetaminophen Tab [Tylenol Tab] 650 mg PO Q4H #30 tablet 08/25/16 [Rx] Follow up Appointment(s)/Referral(s): Charo Castellon MD [STAFF PHYSICIAN] - 09/05/16 11:20 am (You have an appointment with Dr Castellon on Monday, September 05, 2016 at 11:20 am.) Jere Cottrell III, MD [Primary Care Provider] - 1-2 days Patient Instructions/Handouts: Laparoscopic Appendectomy (DC) Discharge Disposition: HOME SELF-CARE
[2016-08-25 16:01] VITALS: BP 108/65; PULSE 76; TEMP 97
== END 2016-08-25 16:30 | disposition home or self-care (01) ==
LOC: EC 16:49 → INTOOBSV 20:51 → 6PED 20:51
PROVIDERS: ADMIT Surgery; ATTEND Surgery
DX: K35.80 Unspecified acute appendicitis (principal); Z87.442 Personal history of urinary calculi
CPT/HCPCS: 44970; 96361 ×2; 96374; 96375; 99285; 36415; 88304; 80053 ×2; 82150; 83690; 85025 ×2; 81001; 81025; 76705; 74177; G0378 ×3; J2250; J1644; J2405 ×2; J2001; J3010; J1885 ×2; J1170; Q9967; J0295; J1100; J0330; J2704

== ENCOUNTER → 2021-01-17 | Outpatient (CLI) | payer BC ==
--- NOTE | 2021-01-17 22:09 | CT ---
EXAMINATION TYPE: CT abdomen pelvis w con DATE OF EXAM: 01/17/2021 HISTORY: RLQ pain, N/V, feeling of fullness, not able to eat like before. Hx appy CT DLP: 369.80mGycm Automated Exposure Control for Dose Reduction was Utilized. CONTRAST: CT scan of the abdomen and pelvis is performed with IV Contrast, patient injected with 100 mL of Isov ue 300. COMPARISON: CT abdomen and pelvis August 24, 2016 FINDINGS: LUNG BASES: No significant abnormality is appreciated. LIVER/GB: No significant abnormality is appreciated. PANCREAS: No significant abnormality is seen. SPLEEN: No significant abnormality is seen. ADRENALS: No significant abnormality is seen. KIDNEYS: No significant abnormality is seen. BOWEL: Oral contrast lateral reach level of terminal ileum making evaluation for wall slightly subopt imal. Sutures from appendectomy seen at base of cecum on current study. No suspicious small or large bowel dilatation. Mild distention of stomach. Mild to moderate thecal prominence in the right transve rse colon UTERUS/ADNEXA: Anteverted uterus redemonstrated. Tubal ligation clips along the periphery again seen. Ovaries symmetric and within normal limits in size. No free fluid in pelvic cul-de-sac. LYMPH NODES: No greater than 1cm abdominal or pelvic lymph nodes are appreciated. OSSEOUS STRUCTURES: No significant abnormality is seen. OTHER: No significant additional abnormality is seen. IMPRESSION: No significant new or acute finding is clearly seen to account for patient's clinical sym ptoms. No bowel obstruction. Mild to moderate proximal colonic fecal stasis thought present.
== END | disposition home or self-care (01) ==
LOC: RADCTMAIN 16:10
PROVIDERS: ATTEND Family Medicine
DX: R19.5 Other fecal abnormalities (principal)
CPT/HCPCS: 74177; Q9967